=== PATIENT | female | born 1935 | race Caucasian/White ===

== ENCOUNTER → 2020-09-25 | Outpatient (CLI) | payer MEDICARE ==
[~2020-09-25] MED LIST: CALCIUM 600 +1 EAC3 PO; CARAFATE1 GM PO; DILTIAZEM 12HR120 MG PO; HYDROXYCHLOROQ200 MG PO; LASIX TAB 20 MG20 MG PO; LEVOTHYROXINE88 MCG PO; MELOXICAM15 MG PO; SPRIVA INH; TRAMADOL HCL50 MG PO; XANAX0.5 MG PO
== END ==
LOC: LAB 13:04
DX: D89.89 Other specified disorders involving the immune mechanism, not elsewhere classified (principal); R76.8 Other specified abnormal immunological findings in serum; M25.50 Pain in unspecified joint
CPT/HCPCS: 36415

== ENCOUNTER → 2020-10-08 | Outpatient (CLI) | payer MEDICARE | LOC: HEART 5 08:15 | DX: Z01.818 Encounter for other preprocedural examination (principal); R94.31 Abnormal electrocardiogram [ECG] [EKG] | CPT/HCPCS: 78452; A9502; J2785 ==

== ENCOUNTER → 2020-10-21 | Outpatient (CLI) | payer MEDICARE | LOC: ECHO 11:00 → NM 10-31 13:00 | DX: Z01.810 Encounter for preprocedural cardiovascular examination (principal); R94.31 Abnormal electrocardiogram [ECG] [EKG]; I08.3 Combined rheumatic disorders of mitral, aortic and tricuspid valves; I27.20 Pulmonary hypertension, unspecified; R93.1 Abnormal findings on diagnostic imaging of heart and coronary circulation | CPT/HCPCS: ECHO; 93306 ==

== ENCOUNTER → 2020-11-27 | Outpatient (CLI) | payer MEDICARE ==
[~2020-11-27] MED LIST changes: +DILTIAZEM 24HR120 M1 PO; +ELIQUIS 2.5 MG2.5 MG PO; +HYDROCODON-ACE1 EAC2 PO; +PHENERGAN 12.12.5 M1 PO; +REFRESH CLASSI1 EACH OP; +TYLENOL PO
[2020-11-27 11:26] LABS: HEMOGLOBIN 12.3 gm/dl (12.3-15.3); RED BLOOD COUNT 4.1 M/UL (4.00-5.10); WHITE BLOOD COUNT 4.6 K/UL (4.5-11.0)
== END ==
LOC: EDBD 09:45 → OPSV2 09:45 → EDSTATUS 10:00
PROVIDERS: Orthopaedic Surgery
DX: Z01.818 Encounter for other preprocedural examination (principal); M16.12 Unilateral primary osteoarthritis, left hip
CPT/HCPCS: 36415; 80048; 85025; 87081

== ENCOUNTER → 2020-12-09 | Outpatient (CLI) | payer MEDICARE | LOC: EDBD 11:48 → LAB 11:48 | PROVIDERS: Orthopaedic Surgery | DX: Z01.812 Encounter for preprocedural laboratory examination (principal); M16.12 Unilateral primary osteoarthritis, left hip; I51.9 Heart disease, unspecified | CPT/HCPCS: 36415; 80048; 86850; 86900; 86901 ==

== ENCOUNTER 2020-12-10 08:28 | Day surgery (SDC) | payer MEDICARE ==
[~2020-12-10] VITALS: Ht 160 cm; Wt 54.9 kg
[~2020-12-10 08:28] MED LIST changes: -DILTIAZEM 24HR120 M1 PO; -ELIQUIS 2.5 MG2.5 MG PO; -HYDROCODON-ACE1 EAC2 PO; -PHENERGAN 12.12.5 M1 PO; -REFRESH CLASSI1 EACH OP; -TYLENOL PO
[2020-12-10] MEDS ORDERED: TYLENOL PO (09:18)
[2020-12-10] MEDS ORDERED: REFRESH CLASSI1 EACH OP (09:18)
[2020-12-10] MEDS ORDERED: DILTIAZEM 24HR120 M1 PO (16:48)
[2020-12-11 04:48] LABS: HEMOGLOBIN 9.3 gm/dl (12.3-15.3); RED BLOOD COUNT 3.09 M/UL (4.00-5.10); WHITE BLOOD COUNT 5.5 K/UL (4.5-11.0)
[2020-12-11] MEDS ORDERED: ELIQUIS 2.5 MG2.5 MG PO (11:32)
[2020-12-11] MEDS ORDERED: PHENERGAN 12.12.5 M1 PO (11:33)
[2020-12-11] MEDS ORDERED: HYDROCODON-ACE1 EAC2 PO (12:21)
== END 2020-12-11 13:22 | disposition home or self-care (01) ==
LOC: OR 08:28 → M/S 08:28 → EDSTATUS 11:00 → M/S 13:49 → OR 12-11 13:22
PROVIDERS: Orthopaedic Surgery
PROC: 3E0T3BZ Introduction of Anesthetic Agent into Peripheral Nerves and Plexi, Percutaneous Approach (ICD-10-PCS; 2020-12-10)
PROC: 0SRB0JZ Replacement of Left Hip Joint with Synthetic Substitute, Open Approach (ICD-10-PCS; principal; 2020-12-10 10:45)
DX: M16.12 Unilateral primary osteoarthritis, left hip (principal); J45.909 Unspecified asthma, uncomplicated; K21.9 Gastro-esophageal reflux disease without esophagitis; I48.91 Unspecified atrial fibrillation; E03.9 Hypothyroidism, unspecified; D64.9 Anemia, unspecified; E66.01 Morbid (severe) obesity due to excess calories; Z68.20 Body mass index [BMI] 20.0-20.9, adult; Z20.822 Contact with and (suspected) exposure to COVID-19; Z87.440 Personal history of urinary (tract) infections; Z79.1 Long term (current) use of non-steroidal anti-inflammatories (NSAID); Z79.899 Other long term (current) drug therapy; Z88.1 Allergy status to other antibiotic agents; Z91.011 Allergy to milk products; Z88.8 Allergy status to other drugs, medicaments and biological substances
CPT/HCPCS: 36415; 73502; 76000; 80048; 85025; 86850; 86900; 86901; 97110-GP-CQ; 97116-GP-CQ; 97161; 97166; 97535; C1776; J0690; J1170; J1885; J2001; J2250; J2405; J2704; J2795; J7050; J7120